=== PATIENT | male | born 1975 | race Caucasian/White ===

== ENCOUNTER 2016-10-19 16:18 | Emergency (ER) | payer SELFPAY ==
[~2016-10-19] VITALS: Ht 175.3 cm; Wt 66.9 kg
[~2016-10-19 16:18] MED LIST: BACT800T5 PO; CLIN150 PO; DOXY100C PO
[2016-10-19 16:24] VITALS: BP 121/77; PULSE 70; RESP 16; TEMP 98.9; O2SAT 98
[2016-10-19] MEDS ORDERED: BACT800T5 PO (16:54)
--- NOTE | 2016-10-19 17:13 | PD ---
HPI Chief Complaint: Cold / Flu Symptoms Time Seen by Provider: 16:54 Travel History International Travel<30 days: No Contact w/Intl Traveler<30days: No Traveled to known affect area: No History of Present Illness HPI 41-year-old male presents to the emergency room for evaluation of nonproductive cough, congestion, sore throat for the past 4 days. He has not been taking anything for his symptoms other than aspirin for occasional headaches. Denies earache, fever, chills, nausea, and vomiting. Denies chronic medical conditions or daily medications. Patient also complains of spontaneously draining abscess to one of his fingers and one of his toes. States they have been present for the past 3 days and he has been squeezing them with expression of purulent drainage. He has been applying triple antibiotic ointment 2 times daily and states they seem to be improving but have not gone away. He is requesting antibiotics. PFSH Past Medical History Heart Rhythm Problems: No Cardiac Catheterization: No Cardiovascular Problems: No High Cholesterol: Yes Chest Pain: Yes Congestive Heart Failure: No Diabetes: No Diminished Hearing: No Tetanus Vaccination: < 5 Years Influenza Vaccination: Yes Past Surgical History Abdominal Surgery: Yes (as child) Coronary Artery Bypass Graft: No Family History Family Myocardial Infarction: Yes (MOTHER) Family Hypercholesterolemia: Yes Social History Alcohol Use: No Tobacco Use: No (QUIT 3 YEARS AGO) Substance Use: No Allergies-Medications (Allergen,Severity, Reaction): Coded Allergies: Penicillin (Verified Allergy, Intermediate, RASH, 10/19/16) *MDRO Multi-Drug Resistant Organism (Verified Adverse Reaction, Unknown, ) MRSA (wound) 04/2015 Reported Meds & Prescriptions Reported Meds & Active Scripts Active Review of Systems Except as stated in HPI: all other systems reviewed are Neg Physical Exam Narrative GENERAL: Well-nourished, well-developed male in no acute distress. Afebrile. Ambulatory. SKIN: Warm and dry. There is an indurated area in the left third finger and right second toe which measures about 1 cm in diameter. There is no fluctuance or drainage but there is pointing. There is a zone of inflammation around it but no lymphangitis. HEAD: Normocephalic. EYES: No scleral icterus. No injection or drainage. ENT: Mucosa pink and moist. Mild to moderate erythema without edema or exudates. No uvular edema. No uvular, palatal, or tonsillar deviation. Airway patent. Nasal turbinates appear normal without nasal blood, purulent drainage or septal hematoma. EARS: Bilateral pinnae and external canals appear within normal limits. Bilateral tympanic membranes without erythema, dullness or perforation. NECK: Supple, trachea midline. No JVD or lymphadenopathy. CARDIOVASCULAR: Regular rate and rhythm without murmurs, gallops, or rubs. RESPIRATORY: Breath sounds equal bilaterally. No accessory muscle use. No crackles, rales, wheezes, or rhonchi. Data Data Last Documented VS Vital Signs Date Time Temp Pulse Resp B/P Pulse Ox O2 Delivery O2 Flow Rate FiO2 10/19/16 16:24 98.9 70 16 121/77 98 MDM Medical Decision Making Medical Screen Exam Complete: Yes Emergency Medical Condition: Yes Medical Record Reviewed: Yes Differential Diagnosis URI versus abscess versus sinusitis versus bronchitis Narrative Course 41-year-old male presents to the emergency room for evaluation of his upper complaint. First complaint is cough and cold symptoms for 4 days. Patient is afebrile and well-appearing in the emergency room. Vital signs stable. Physical exam shows no evidence of bacterial infection in the ears, nose, throat , or lungs. Second complaint is 2 abscesses, one on the left third finger and one on the right second finger. The patient states they are spontaneously draining. There is no indication for incision and drainage at this time as there is no fluctuance. Given history of MRSA, he will will be discharged with prescription for Bactrim. Told to follow up with a primary care physician and return for worsening symptoms. He understands and agrees to plan. Diagnosis Primary Impression: Skin lesion Additional Impression: Upper respiratory infection Qualified Code: J00 - Acute nasopharyngitis Referrals: Primary Care Physician Patient Instructions: Abscess (ED), General Instructions, Upper Respiratory Infection (ED) Additional Instructions: Rest and drink plenty of fluids. [id number] cough and cold medication for symptoms. Take Bactrim as directed, until gone. Take ibuprofen with food as directed, as needed for pain. Follow-up with a primary care physician. Return to the emergency room for worsening symptoms. Med/Other Pt SpecificInfo: Prescription(s) given Scripts Sulfamethoxazole-Trimethoprim (Bactrim DS)800-160 Mg Tab1 Tab PO BID #20 TAB Ref 0 Prov:Adriane Herrera DO 10/19/16 Disposition: 01 DISCHARGE HOME Condition: Stable Jaelyn Everett Oct 19, 2016 17:13
== END 2016-10-19 17:21 | disposition home or self-care (01) ==
LOC: PHEFT 16:18
DX: J00 Acute nasopharyngitis [common cold] (principal); L98.9 Disorder of the skin and subcutaneous tissue, unspecified
CPT/HCPCS: 99283